=== PATIENT | female | born 1990 | race Two or more races ===

== ENCOUNTER → 2024-11-23 | Outpatient (CLI) | payer BC, SELFPAY ==
[2024-11-23 13:00] LABS: Basophils % (Auto) 1 % (0-2.5); Eosinophils # (Auto) 0.2 Thou/mm3 (0.0-0.5); Eosinophils % (Auto) 3 % (0-10); Hematocrit 35.2 % (36.0-46.0); Hemoglobin 11.9 g/dL (12.0-16.0); Immature Granulocytes % (Auto) 1 % (0-0); Immature Granulocytes Auto 0.03 Thou/mm3 (0.00-0.00); Lymphocytes % (Auto) 36 % (10-50); Mean Corpuscular HGB Conc 33.8 g/dl (31.0-37.0); Mean Corpuscular Hemoglobin 28.3 pg (25.0-35.0); Mean Corpuscular Volume 84 fL (80-100); Monocytes # (Auto) 0.5 Thou/mm3 (0.0-0.8); Monocytes % (Auto) 8 % (0-12); Neutrophils # (Auto) 2.8 Thou/mm3 (1.8-7.7); Neutrophils % (Auto) 52 % (37-80); Nucleated Red Blood Cell % 0 /100 WBC (0); Platelet Count 274 Thou/mm3 (140-440); RDW Standard Deviation 41.3 fL (36.4-46.3); Red Blood Count 4.21 Miln/mm3 (4.00-5.20); White Blood Count 5.5 Thou/mm3 (3.6-11.0)
[2024-11-23 13:17] LABS: Ferritin 21 ng/mL (7.3-270.7); Iron 65 mcg/dL (50-170)
== END | disposition home or self-care (01) ==
LOC: COPL 11:12
PROVIDERS: PCP Nurse Practitioner Family; Referring Provider Obstetrics & Gynecology; Visit Provider Obstetrics & Gynecology
DX: N92.1 Excessive and frequent menstruation with irregular cycle (principal)
CPT/HCPCS: 36415; 82728; 83540; 85025

== ENCOUNTER → 2025-05-15 | Outpatient (CLI) | payer BC, SELFPAY ==
[2025-05-15 12:21] LABS: Collection Type, Urine Clean Catch
[2025-05-15 12:48] LABS: Glucose Estimated Average 120 mg/dL (80-131); Hemoglobin A1C 5.8 % Hgb (4.8-6.0)
[2025-05-15 12:48] LABS: Bacteria,Urine Rare; Bilirubin,Urine Negative (Negative); Blood,Urine Negative (Negative); Clarity,Urine Clear (Clear/Hazy); Color,Urine Lt-Yellow (Lt Yel-Yel); Culture Indicated,Urine Not Indicated; Glucose, Urine Negative (Negative); Hyaline Casts,Urine < 1 /hpf (0-1); Ketones,Urine Negative (Negative); Leukocyte Esterase,Urine Positive (Negative); Nitrite,Urine Negative (Negative); PH,Urine 6.0 (5.0-7.0); Protein,Urine Negative (Neg - Trace); RBC,Urine 3 /hpf (0-3); Specific Gravity,Urine 1.021 (1.001-1.035); Squamous Epithelial Cell,Urine 5 /hpf (0-5); Urobilinogen,Urine Negative mg/dL (0.0-1.0); WBC,Urine 5 /hpf (0-5)
[2025-05-15 12:58] LABS: Vitamin D 25 Hydroxy Total 28.4 ng/mL (7.3-40.2)
[2025-05-15 13:00] LABS: Alanine Aminotransferase 74 U/L (10-49); Albumin, Serum 4.1 gm/dL (3.5-5.0); Albumin/Globulin Ratio 1.6 (1.2-2.2); Alkaline Phosphatase 52 U/L (46-116); Anion Gap 9 (7-16); Aspartate Amino Transferase 53 U/L (0-34); BUN/Creatinine Ratio 14 Ratio (12-20); Basophils # (Auto) 0.0 Thou/mm3 (0.0-0.2); Basophils % (Auto) 1 % (0-2.5); Bilirubin,Total 0.5 mg/dL (0.3-1.2); Blood Urea Nitrogen 10 mg/dL (9-23); Calcium 9.4 mg/dL (8.3-10.6); Calcium (Corrected) 9.4 mg/dL (8.5-10.1); Carbon Dioxide 26.9 mMol/L (20.0-31.0); Cardiac Risk Estimate 4.1 RATIO (3.7-5.6); Chloride 105 mMol/L (98-107); Cholesterol 167 mg/dL (132-200); Creatinine (Component) 0.7 mg/dL (0.6-1.3); Eosinophils # (Auto) 0.1 Thou/mm3 (0.0-0.5); Eosinophils % (Auto) 2 % (0-10); Globulin 2.6 gm/dL (2.3-3.5); Glucose 99 mg/dL (74-106); HDL Cholesterol 41 mg/dL (40-60); Hematocrit 37.0 % (36.0-46.0); Hemoglobin 12.6 g/dL (12.0-16.0); Immature Granulocytes Auto 0.02 Thou/mm3 (0.00-0.00); LDL Cholesterol,Calculated 103 mg/dL (0-130); Lymphocytes # (Auto) 1.6 Thou/mm3 (1.0-4.8); Lymphocytes % (Auto) 33 % (10-50); Mean Corpuscular HGB Conc 34.1 g/dl (31.0-37.0); Mean Corpuscular Hemoglobin 31.0 pg (25.0-35.0); Mean Corpuscular Volume 91 fL (80-100); Monocytes # (Auto) 0.6 Thou/mm3 (0.0-0.8); Monocytes % (Auto) 11 % (0-12); Neutrophils # (Auto) 2.6 Thou/mm3 (1.8-7.7); Neutrophils % (Auto) 53 % (37-80); Nucleated Red Blood Cell # 0.00 Thou/mm3 (0.00-0.00); Nucleated Red Blood Cell % 0 /100 WBC (0); Osmolality,Calculated 280 (275-295); Platelet Count 245 Thou/mm3 (140-440); Potassium 4.3 mMol/L (3.4-5.1); RDW Standard Deviation 39.8 fL (36.4-46.3); Red Blood Count 4.07 Miln/mm3 (4.00-5.20); Sodium 141 mMol/L (136-145); Thyroid Stimulating Hormone 1.47 uIU/mL (0.55-4.78); Total Protein 6.7 gm/dL (5.7-8.2); Triglycerides 114 mg/dL (30-150); White Blood Count 4.9 Thou/mm3 (3.6-11.0); eGFR > 60 See Note
== END | disposition home or self-care (01) ==
LOC: COPL 11:24
PROVIDERS: PCP Registered Nurse; Referring Provider Registered Nurse; Visit Provider Registered Nurse
DX: K76.0 Fatty (change of) liver, not elsewhere classified (principal); R73.03 Prediabetes; R79.89 Other specified abnormal findings of blood chemistry
CPT/HCPCS: 36415; 80053; 80061; 81001; 82306; 83036; 84443; 85025

== ENCOUNTER → 2025-09-06 | Outpatient (CLI) | payer BC, SELFPAY ==
[2025-09-06 08:35] LABS: Basophils # (Auto) 0.0 Thou/mm3 (0.0-0.2); Basophils % (Auto) 0 % (0-2.5); Eosinophils # (Auto) 0.1 Thou/mm3 (0.0-0.5); Eosinophils % (Auto) 2 % (0-10); Hematocrit 34.2 % (36.0-46.0); Hemoglobin 11.9 g/dL (12.0-16.0); Immature Granulocytes Auto 0.02 Thou/mm3 (0.00-0.00); Lymphocytes # (Auto) 1.8 Thou/mm3 (1.0-4.8); Lymphocytes % (Auto) 38 % (10-50); Mean Corpuscular HGB Conc 34.8 g/dl (31.0-37.0); Mean Corpuscular Hemoglobin 31.3 pg (25.0-35.0); Mean Corpuscular Volume 90 fL (80-100); Monocytes # (Auto) 0.4 Thou/mm3 (0.0-0.8); Monocytes % (Auto) 9 % (0-12); Neutrophils # (Auto) 2.4 Thou/mm3 (1.8-7.7); Neutrophils % (Auto) 51 % (37-80); Nucleated Red Blood Cell # 0.00 Thou/mm3 (0.00-0.00); Nucleated Red Blood Cell % 0 /100 WBC (0); Platelet Count 221 Thou/mm3 (140-440); RDW Standard Deviation 38.5 fL (36.4-46.3); Red Blood Count 3.80 Miln/mm3 (4.00-5.20); White Blood Count 4.7 Thou/mm3 (3.6-11.0)
[2025-09-06 08:55] LABS: Alanine Aminotransferase 93 U/L (10-49); Albumin, Serum 4.4 gm/dL (3.5-5.0); Albumin/Globulin Ratio 1.6 (1.2-2.2); Alkaline Phosphatase 52 U/L (46-116); Anion Gap 9 (7-16); Aspartate Amino Transferase 58 U/L (0-34); BUN/Creatinine Ratio 17 Ratio (12-20); Bilirubin,Total 0.4 mg/dL (0.3-1.2); Blood Urea Nitrogen 10 mg/dL (9-23); Calcium 8.9 mg/dL (8.3-10.6); Calcium (Corrected) 8.9 mg/dL (8.5-10.1); Carbon Dioxide 26.8 mMol/L (20.0-31.0); Cardiac Risk Estimate 4.4 RATIO (3.7-5.6); Chloride 106 mMol/L (98-107); Cholesterol 141 mg/dL (132-200); Creatinine (Component) 0.6 mg/dL (0.6-1.3); Globulin 2.7 gm/dL (2.3-3.5); Glucose 108 mg/dL (74-106); HDL Cholesterol 32 mg/dL (40-60); LDL Cholesterol,Calculated 78 mg/dL (0-130); Osmolality,Calculated 283 (275-295); Potassium 3.9 mMol/L (3.4-5.1); Sodium 142 mMol/L (136-145); Thyroid Stimulating Hormone 1.29 uIU/mL (0.55-4.78); Total Protein 7.1 gm/dL (5.7-8.2); Triglycerides 155 mg/dL (30-150); eGFR > 60 See Note
[2025-09-06 08:58] LABS: Iron 66 mcg/dL (50-170); Percent Iron Saturation 21 % (20-55); Total Iron Binding Capacity 313 mcg/dL (250-425); Unsaturated Iron Binding 247 (225-295)
[2025-09-06 08:59] LABS: Follicle Stimulating Hormone 6.32 mIU/mL (See Note)
[2025-09-06 09:06] LABS: Glucose Estimated Average 117 mg/dL (80-131); Hemoglobin A1C 5.7 % Hgb (4.8-6.0)
[2025-09-13 06:32] LABS: DHEA Sulfate* 118 mcg/dL (23-266); Estradiol, Ultrasensitive* 34 pg/mL; Luteinizing Hormone* 2.1 mIU/mL; Testosterone, Free,Dialysis 1.6 pg/mL (0.1-6.4); Testosterone, Total, Dialysis 12 ng/dL (2-45)
== END | disposition home or self-care (01) ==
LOC: COPL 07:48
PROVIDERS: PCP Family Medicine; Referring Provider Nurse Practitioner Family; Visit Provider Nurse Practitioner Family
DX: R73.03 Prediabetes (principal); K76.0 Fatty (change of) liver, not elsewhere classified; E03.9 Hypothyroidism, unspecified; E28.310 Symptomatic premature menopause
CPT/HCPCS: 36415; 80053; 80061; 82627; 82670; 83001; 83002; 83036; 83540; 83550; 84402; 84403; 84443; 85025

== ENCOUNTER → 2025-10-03 | Outpatient (CLI) | payer BC, SELFPAY ==
--- NOTE | 2025-10-03 14:30 | XR_ITS ---
Examination: Abdomen sonogram, Limited Date and time of exam: October 03, 2025, 1425 hours INDICATIONS: Abnormal liver function test on laboratory examination 1 month ago Technique: Real-time cid scale transabdominal sonographic images of the upper abdomen obtained. Findings: Absent gallbladder Common bile duct 0.5 cm Pancreatic head 2.7 cm Liver 20.1 cm fatty infiltration no focal liver lesions Normal hepatopetal portal venous Patent IVC IMPRESSION: Absent gallbladder Normal common bile duct Moderate hepatomegaly no focal liver lesions
== END | disposition home or self-care (01) ==
PROVIDERS: PCP Family Medicine; Referring Provider Family Medicine; Visit Provider Family Medicine
DX: R16.0 Hepatomegaly, not elsewhere classified (principal); Z90.49 Acquired absence of other specified parts of digestive tract
CPT/HCPCS: 76705